=== PATIENT | female | born 1985 | race Caucasian/White ===

== ENCOUNTER 2017-03-18 17:32 | Emergency (ER) | payer MEDICAID, OTHER ==
[~2017-03-18] VITALS: Ht 149.9 cm; Wt 63.5 kg
[2017-03-18 17:38] VITALS: BP 156/105
--- NOTE | 2017-03-18 17:40 | NUR ---
PT TAKEN TO BED 5 AT THIS TIME.
--- NOTE | 2017-03-18 17:40 | NUR ---
PATIENT PRESENTS TO ED WITH SUPRAPUBIC AREA PAIN PULSATING PALPATION . PT STATES . DENIES N/V/D; SKIN IS PINK/WARM/DRY; AAOX4 WITH EVEN AND STEADY GAIT; LUNGS CLEAR BL; HR EVEN AND REGULAR; PT DENIES ANY FEVER, CP, SOB, OR COUGH AT THIS TIME; PATIENT STATES PAIN OF 10/10 AT THIS TIME; VSS; PATIENT POSITIONED FOR COMFORT; HOB ELEVATED; BEDRAILS UP X2; BED DOWN. ER MD MADE AWARE OF PT STATUS.
[2017-03-18] MEDS ORDERED: KETOROLAC 15 MG/ML VIAL IVP ONE (18:05)
--- NOTE | 2017-03-18 18:17 | NUR ---
Ultrasound at bedside.
[2017-03-18 18:22] LABS: APPEARANCE,URINE CLEAR (CLEAR); BILIRUBIN,URINE NEGATIVE (NEGATIVE); BLOOD, URINE 2+ (NEGATIVE); COLOR,URINE YELLOW (YELLOW); LEUKOCYTE ESTERASE ,URINE 3+ (NEGATIVE); NITRITE, URINE NEGATIVE (NEGATIVE); PH,URINE 8.5 (5.0-9.0); PROTEIN,URINE 2+ (NEGATIVE); UGLUCOSE 1+ (NEGATIVE); UROBILINOGEN,URINE 0.2 EU/dL (0.2 - 1)
[2017-03-18 18:22] LABS: BASOPHILS # (AUTO) 0.2 K/uL (0.00-0.22); EOSINOPHILS # (AUTO) 0.3 K/uL (0-0.4); HEMATOCRIT 37.7 % (36-48); HEMOGLOBIN 12.2 g/dL (12.0-16.0); LYMPHOCYTES # (AUTO) 3.1 K/uL (2.5-16.5); MEAN CORPUSCULAR HEMOGLOBIN 34 pg (27-31); MEAN CORPUSCULAR HGB CONC 33 g/dL (33-37); MEAN CORPUSCULAR VOLUME 103 fL (80-94); MONOCYTES # (AUTO) 0.6 K/uL (0.8-1.0); NEUTROPHILS # (AUTO) 4.1 K/uL (1.8-7.7); PLATELET COUNT (AUTO) 294 K/uL (140-450); RED BLOOD CELL COUNT(AUTO) 3.66 MIL/uL (4.20-5.40); RED CELL DISTRIBUTION WIDTH 16.6 % (11.6-13.7); WHITE BLOOD COUNT (AUTO) 8.3 K/uL (4.8-10.8)
[2017-03-18 18:28] LABS: BACTERIA,URINE 1-9 (FEW) /HPF (None Seen); SQUAMOUS EPITHELIAL CELL,UR >10 (MANY) /LPF (0-3 (FEW)); WBC,URINE 16-25 (MOD) /HPF (0-5)
--- NOTE | 2017-03-18 18:32 | NUR ---
LAYING SUPINE WITH OU CLOSED, NO GRIMACE NO MOAN NOT TEARFUL---STATES 6/10 PAIN AT THIS TIME, ADMITS PAIN MUCH LESS THAN EARLIER--- REMAINS AT BEDSIDE. WILL CONTINUE TO OBSERVE FOR PAIN CONTROL
[2017-03-18 18:37] LABS: ALBUMIN 3.4 g/dL (3.4-5.0); ANION GAP 12.7 (8-16); CALCIUM 9.2 mg/dL (8.5-10.1); CARBON DIOXIDE 30.1 mmol/L (21-32); POTASSIUM 4.8 mmol/L (3.5-5.1); TOTAL BILIRUBIN 0.5 mg/dL (0.0-1.0); TOTAL PROTEIN, SERUM 7.6 g/dL (6.4-8.2)
[2017-03-18] MEDS ORDERED: cefTRIAXone 1,000 MG VIAL ONE (19:10)
--- NOTE | 2017-03-18 19:10 | NUR ---
PIV WAS DC'D PRIOR TO ROCEPHIN WAS ADMINISTERED--- NOTIFIED, OKAYED TO GIVE IM
[2017-03-18 19:12] VITALS: BP 140/89
--- NOTE | 2017-03-18 19:13 | NUR ---
Patient discharged with v/s stable. Written and verbal after care instructions given and explained. Patient alert, oriented and verbalized understanding of instructions. Ambulatory with steady gait. All questions addressed prior to discharge. ID band removed. Patient advised to follow up with PMD. Rx of KEFLEX/NORCO given. Patient educated on indication of medication including possible reaction and side effects. Opportunity to ask questions provided and answered.
== END 2017-03-18 19:13 | disposition home or self-care (01) ==
LOC: MED 17:32
DX: I12.0 Hypertensive chronic kidney disease with stage 5 chronic kidney disease or end stage renal disease (principal); N18.6 End stage renal disease; N39.0 Urinary tract infection, site not specified; Z99.2 Dependence on renal dialysis
CPT/HCPCS: 36415; 76856; 80053; 81001; 85025; 87086; 96372; 96374; 99285; J0696; J1885; Q0092

== ENCOUNTER 2024-05-10 13:01 | Emergency (ER) | payer OTHER ==
[~2024-05-10] VITALS: Ht 149.9 cm; Wt 61.7 kg
[~2024-05-10 13:01] MED LIST: ATOR20TA PO; CEL250 PO; FAMO-90 PO; PRED5TAB7 PO; SULF-58 PO; TACR1CAP17 PO
[2024-05-10 13:38] VITALS: BP 125/78; PULSE 100; RESP 16; TEMP 96.8; O2SAT 99
[2024-05-10] MEDS: NACL 0.9% 1,000 ML IV SCH (15:03)
[2024-05-10] MEDS: ONDANSETRON 4 MG/2 ML VIAL IVP ONE (15:05)
[2024-05-10 15:08] LABS: APPEARANCE,URINE CLEAR (CLEAR); BILIRUBIN,URINE NEGATIVE (NEGATIVE); BLOOD, URINE 1+ (NEGATIVE); COLOR,URINE YELLOW (YELLOW); LEUKOCYTE ESTERASE ,URINE NEGATIVE (NEGATIVE); NITRITE, URINE NEGATIVE (NEGATIVE); PH,URINE 7.5 (5.0-9.0); PROTEIN,URINE 3+ (NEGATIVE); UGLUCOSE NEGATIVE (NEGATIVE); UROBILINOGEN,URINE 0.2 EU/dL (0.2 - 1)
[2024-05-10 15:20] LABS: BACTERIA,URINE FEW /HPF (None Seen); MUCUS,URINE None Seen /LPF (None Seen); SQUAMOUS EPITHELIAL CELL,UR 0-3 (FEW) /LPF (0-3 (FEW)); WBC,URINE 0-5 /HPF (0-5); YEAST,URINE None Seen /HPF (None Seen)
[2024-05-10 15:21] LABS: TRICHOMONAS,URINE None Seen /HPF (None Seen); WHITE BLOOD CELL CASTS,URINE None Seen /LPF (None Seen)
[2024-05-10 15:36] LABS: BASOPHILS % (AUTO) 0.3 % (0.0-2.0); EOSINOPHILS % (AUTO) 0.5 % (0.0-4.0); HEMATOCRIT 26.7 % (36-48); HEMOGLOBIN 8.6 g/dL (12.0-16.0); LYMPHOCYTES # (AUTO) 0.3 K/uL (2.5-16.5); LYMPHOCYTES % (AUTO) 5.5 % (20.5-51.1); MEAN CORPUSCULAR HEMOGLOBIN 29 pg (27-31); MEAN CORPUSCULAR HGB CONC 32 g/dL (33-37); MONOCYTES # (AUTO) 0.4 K/uL (0.8-1.0); MONOCYTES % (AUTO) 8.1 % (1.7-9.3); NEUTROPHILS # (AUTO) 4.1 K/uL (1.8-7.7); NEUTROPHILS % (AUTO) 85.6 % (42.2-75.2); PLATELET COUNT (AUTO) 277 K/uL (140-450); RED CELL DISTRIBUTION WIDTH 15.4 % (11.6-13.7); WHITE BLOOD COUNT (AUTO) 4.8 K/uL (4.8-10.8)
[2024-05-10 15:46] LABS: CALCIUM 9.6 mg/dL (8.5-10.1); CARBON DIOXIDE 25.3 mmol/L (21-32); CREATININE 3.9 mg/dL (0.6-1.3); POTASSIUM 4.3 mmol/L (3.5-5.1)
[2024-05-10 15:51] LABS: ALBUMIN 3.4 g/dL (3.4-5.0); BILIRUBIN,DIRECT 0.2 mg/dL (0.0-0.3); TOTAL BILIRUBIN 0.9 mg/dL (0.0-1.0); TOTAL PROTEIN, SERUM 6.8 g/dL (6.4-8.2)
[2024-05-10] MEDS ORDERED: ONDA-188 SL (17:06)
[2024-05-10 17:49] VITALS: BP 140/89; PULSE 88; RESP 18; TEMP 98.8; O2SAT 100
== END 2024-05-10 17:49 | disposition home or self-care (01) ==
LOC: MED 13:01
DX: R11.10 Vomiting, unspecified (principal); R19.7 Diarrhea, unspecified; R10.33 Periumbilical pain; I12.0 Hypertensive chronic kidney disease with stage 5 chronic kidney disease or end stage renal disease; N18.6 End stage renal disease; Z99.2 Dependence on renal dialysis; Z94.0 Kidney transplant status; Z79.899 Other long term (current) drug therapy
CPT/HCPCS: 36415; 74018; 80048; 80076; 81001; 81025; 83690; 85025; 96361; 96374; 99284; J2405; J7030